=== PATIENT | female | born 1940 | race Caucasian/White ===

== ENCOUNTER 2023-10-21 09:19 | Emergency (ER) | payer OTHER, MEDICAID ==
[~2023-10-21] VITALS: Ht 147.3 cm; Wt 47.2 kg
[2023-10-21 09:42] VITALS: BP 136/67; PULSE 95; RESP 16; TEMP 98.6; O2SAT 96
[2023-10-21] MEDS: KETOROLAC 30 MG/ML VIAL IM ONE (10:28)
[2023-10-21] MEDS ORDERED: TRAM50TA3 PO (11:08)
[2023-10-21] MEDS ORDERED: NAPR-1704 PO (11:08)
[2023-10-21 11:40] VITALS: BP 135/67; PULSE 88; RESP 16; TEMP 98.6; O2SAT 96
== END 2023-10-21 11:41 | disposition home or self-care (01) ==
LOC: MED 09:19
DX: M25.552 Pain in left hip (principal); M16.12 Unilateral primary osteoarthritis, left hip; Z79.1 Long term (current) use of non-steroidal anti-inflammatories (NSAID); Z79.899 Other long term (current) drug therapy
CPT/HCPCS: 73502; 96372; 99283; J1885

== ENCOUNTER 2023-10-25 08:35 | Emergency (ER) | payer OTHER ==
[~2023-10-25] VITALS: Ht 149.9 cm; Wt 46.7 kg
[~2023-10-25 08:35] MED LIST: NAPR-1704 PO; TRAM50TA3 PO
[2023-10-25 08:58] VITALS: BP 121/59; PULSE 90; RESP 16; TEMP 98.8; O2SAT 97
[2023-10-25] MEDS: NACL 0.9% 1,000 ML IV ONE (09:40)
[2023-10-25] MEDS: ONDANSETRON 4 MG/2 ML VIAL IVP ONE (09:42)
[2023-10-25] MEDS: MORPHINE SULFATE 2 MG/ML SYR IVP STA (09:45)
[2023-10-25 09:46] LABS: BASOPHILS % (AUTO) 0.4 % (0.0-2.0); EOSINOPHILS # (AUTO) 0.1 K/uL (0-0.4); EOSINOPHILS % (AUTO) 0.6 % (0.0-4.0); HEMATOCRIT 32.1 % (36-48); HEMOGLOBIN 11.1 g/dL (12.0-16.0); LYMPHOCYTES # (AUTO) 0.9 K/uL (2.5-16.5); LYMPHOCYTES % (AUTO) 9.2 % (20.5-51.1); MEAN CORPUSCULAR HEMOGLOBIN 33 pg (27-31); MEAN CORPUSCULAR HGB CONC 35 g/dL (33-37); MEAN CORPUSCULAR VOLUME 95.3 fL (80-94); MONOCYTES % (AUTO) 10.7 % (1.7-9.3); NEUTROPHILS # (AUTO) 7.5 K/uL (1.8-7.7); NEUTROPHILS % (AUTO) 79.1 % (42.2-75.2); PLATELET COUNT (AUTO) 330 K/uL (140-450); RED BLOOD CELL COUNT(AUTO) 3.37 MIL/uL (4.20-5.40); RED CELL DISTRIBUTION WIDTH 12.4 % (11.6-13.7); WHITE BLOOD COUNT (AUTO) 9.5 K/uL (4.8-10.8)
[2023-10-25 10:04] LABS: ALANINE AMINOTRANSFERASE 25 U/L (12-78); ALBUMIN 3.6 g/dL (3.4-5.0); ALKALINE PHOSPHATASE 89 U/L (50-136); ANION GAP 10.1 (8-16); ASPARTATE AMINOTRANSFERASE 29 U/L (15-37); CALCIUM 8.6 mg/dL (8.5-10.1); CARBON DIOXIDE 30.5 mmol/L (21-32); CHLORIDE 96 mmol/L (98-107); GLUCOSE 125 mg/dL (74-106); LIPASE 50 U/L (16-77); POTASSIUM 3.6 mmol/L (3.5-5.1); SODIUM SERUM 133 mmol/L (136-145); TOTAL BILIRUBIN 0.6 mg/dL (0.0-1.0); TOTAL PROTEIN, SERUM 7.4 g/dL (6.4-8.2); UREA NITROGEN, BLOOD 18 mg/dL (7-18)
[2023-10-25 11:22] LABS: APPEARANCE,URINE CLEAR (CLEAR); BILIRUBIN,URINE NEGATIVE (NEGATIVE); BLOOD, URINE NEGATIVE (NEGATIVE); COLOR,URINE YELLOW (YELLOW); LEUKOCYTE ESTERASE ,URINE NEGATIVE (NEGATIVE); NITRITE, URINE NEGATIVE (NEGATIVE); PH,URINE 6.5 (5.0-9.0); PROTEIN,URINE NEGATIVE (NEGATIVE); UGLUCOSE NEGATIVE (NEGATIVE); UROBILINOGEN,URINE 0.2 EU/dL (0.2 - 1)
[2023-10-25] MEDS: KETOROLAC 30 MG/ML VIAL IVP ONE (13:08)
[2023-10-25] MEDS: CYCLOBENZAPRINE 10 MG TAB PO ONE (13:09)
[2023-10-25] MEDS ORDERED: ONDA-188 SL (13:16)
[2023-10-25 13:50] VITALS: BP 144/77; PULSE 77; RESP 16; TEMP 98; O2SAT 97
== END 2023-10-25 13:50 | disposition home or self-care (01) ==
LOC: MED 08:35
DX: R10.32 Left lower quadrant pain (principal); Z79.899 Other long term (current) drug therapy
CPT/HCPCS: 36415; 74177; 80053; 81003; 83690; 84484; 85025; 96361; 96374; 96375; 99285; J1885; J2270; J2405; J7030; Q9967